=== PATIENT | male | born 1930 | race Caucasian/White ===

== ENCOUNTER → 2017-01-20 | Outpatient (CLI) | payer BC ==
[~2017-01-20] MED LIST: ACET300T2 PO; ASPI81TA28 PO; EPP3/2 IM; LEVO25TA5 PO; MULTTAB58 PO; PRLSR20 PO; SIMV-151 PO; TPRSR/25 PO
[2017-01-20 09:22] LABS: HEMATOCRIT 37.6 % (42-52); MEAN CELL VOLUME 100.5 fL (80-100); MEAN CORPUSCULAR HEMOGLOBIN 32.6 pg (25-34); MEAN CORPUSCULAR HGB CONC 32.4 g/dl (32-36); MEAN PLATELET VOLUME 11.8 fL (7.4-10.4); PLATELET COUNT 113 K/uL (130-400); RED BLOOD COUNT 3.74 M/uL (4.7-6.1); WHITE BLOOD COUNT 7.24 K/uL (4.8-10.8)
[2017-01-20 09:31] LABS: BLOOD UREA NITROGEN 19 mg/dl (7-18); BUN/CREATININE RATIO 16.2 (10-20); CARBON DIOXIDE 29 mmol/L (21-32); CHLORIDE 108 mmol/L (98-107); GLUCOSE 84 mg/dl (70-99); MAGNESIUM 2.3 mg/dl (1.8-2.4); POTASSIUM 4.2 mmol/L (3.5-5.1); SODIUM 143 mmol/L (136-145)
[2017-01-20 09:34] LABS: CALCIUM 9.5 mg/dl (8.5-10.1)
== END ==
LOC: C.LABFOXMH 09:00
PROVIDERS: ATTEND Internal Medicine
DX: I10 Essential (primary) hypertension (principal)

== ENCOUNTER → 2017-01-26 | Outpatient (CLI) | payer BC | END | disposition home or self-care (01) | LOC: C.LABFOXMH 09:39 | PROVIDERS: ATTEND Internal Medicine | DX: D53.9 Nutritional anemia, unspecified (principal) ==

== ENCOUNTER → 2017-02-02 | Outpatient (CLI) | payer BC ==
--- NOTE | 2017-02-02 14:29 | DIAGNOSTIC IMAGING REPORT ---
CT OF THE HEAD WITHOUT CONTRAST CLINICAL HISTORY: MEMORY LOSS, GAIT DYSFUNCTION COMPARISON STUDY: Head CT June 08, 2013. CT DOSE: 1068.18 mGycm TECHNIQUE: Helical axial images of the head were obtained without IV contrast. Automated exposure control was utilized for the study. FINDINGS: No acute intracranial hemorrhage, midline shift or mass effect is present. Ventricular system is stable. Basilar cisterns are patent. There are no extra axial collections. Teran-white differentiation is preserved. Mild atrophy is noted. White matter hypodensities suggest mild small vessel disease. There are no findings to suggest acute dural sinus thrombosis or acute territorial infarct. There are no significant calvarial abnormalities. Visualized portions of the sinuses and mastoid air cells are clear. IMPRESSION: No acute intracranial findings. Electronically signed by: Alvin Barboza M.D. 02/02/2017 2:27 PM Dictated Date/Time: 02/02/2017 2:25 PM
== END | disposition home or self-care (01) ==
LOC: C.CTS 14:06
PROVIDERS: ATTEND Internal Medicine
DX: R41.3 Other amnesia (principal); R32 Unspecified urinary incontinence; R26.9 Unspecified abnormalities of gait and mobility

== ENCOUNTER → 2017-06-07 | Outpatient (CLI) | payer BC | END | disposition home or self-care (01) | LOC: C.LABFOXMH 09:16 | PROVIDERS: ATTEND Internal Medicine Hospice and Palliative Medicine | DX: E03.9 Hypothyroidism, unspecified (principal) ==

== ENCOUNTER → 2018-01-24 | Outpatient (CLI) | payer BC ==
[2018-01-24 09:32] LABS: ALBUMIN 3.8 gm/dl (3.4-5.0); ALT/SGPT 19 U/L (12-78); AST/SGOT 19 U/L (15-37); BLOOD UREA NITROGEN 23 mg/dl (7-18); CALCIUM 8.5 mg/dl (8.5-10.1); CARBON DIOXIDE 31 mmol/L (21-32); CHOLESTEROL 77 mg/dl (0-200); CREATININE 1.37 mg/dl (0.60-1.40); GLUCOSE 86 mg/dl (70-99); POTASSIUM 4.1 mmol/L (3.5-5.1); SODIUM 142 mmol/L (136-145)
[2018-01-24 09:35] LABS: ALKALINE PHOSPHATASE 44 U/L (45-117); LDL CHOLESTEROL CALCULATED 30 mg/dl; TOTAL PROTEIN 6.9 gm/dl (6.4-8.2)
== END | disposition home or self-care (01) ==
LOC: C.LABFOXMH 09:06
PROVIDERS: ATTEND Internal Medicine
DX: E78.00 Pure hypercholesterolemia, unspecified (principal)

== ENCOUNTER 2019-06-27 16:21 | Inpatient (IN) ==
--- NOTE | 2019-06-27 18:55 | Emergency Department Note ---
Entered by Antonietta Grimaldo acting as a scribe for Dave Reyes DO History of Present Illness General Chief complaint: Rash Stated complaint: RASH Time Seen by Provider: 06/27/19 17:18 Source: patient History of Present Illness Provider complaint: Rash Onset (ago): month(s) 1 Location: chest Radiation: back and extremity (Upper ) Maximum Pain Intensity: 0 Relieved By: + none Associated symptoms: + other (Fatigue); no cough, no diaphoresis, no fever/chills and no shortness of breath The patient is a 88 year old male who presents to the Emergency Room with complaints of a rash on his chest that began 1 month ago. The patient states the rash radiates from his chest to his arms and back. Additionally, the patient states the rash is not relieved by anything specific. The patient reports experiencing extreme fatigue. The patient denies experiencing any diaphoresis, cough, fever/chills, or shortness of breath. The patient mentioned that he has "issues with his blood." Home Medications Home Medications Medication Instructions Recorded Confirmed Type aspirin 81 mg tablet,delayed 81 mg PO DAILY tab 06/16/19 06/27/19 History release levothyroxine 25 mcg tablet 25 mcg PO DAILY tab 06/16/19 06/27/19 History metoprolol succinate ER 25 mg 25 mg PO DAILY tab 06/16/19 06/27/19 History tablet,extended release 24 hr omeprazole 20 mg capsule,delayed 20 mg PO DAILY #30 cap 06/16/19 06/27/19 History release simvastatin 20 mg tablet 20 mg PO DAILY tab 06/16/19 06/27/19 History donepezil 10 mg PO DAILY 06/27/19 06/27/19 History Allergies Allergy/AdvReac Type Severity Reaction Status Date / Time coconut Allergy Unknown Verified 06/27/19 15:52 nut - unspecified Allergy Unknown . Verified 06/27/19 15:52 Past Med/Surg History Medical History Chest pain (Acute) Family History Other Family history non-contributory Social History Feels Safe at Home: Yes Smoking Status: Never smoker Review of Systems See HPI for pertinent positives & negatives. and A total of 10 systems reviewed and were otherwise negative Physical Exam Vital Signs Vital Signs - 24 hr 06/27/19 16:23 06/27/19 18:35 Temperature 36.3 C L Temperature Source Oral Sepsis Recent Fever Within 48 Hours No Sepsis Action Taken by Nursing No Action Required Pulse Rate 80 Pulse Rate [Right Finger] 70 Pulse Rhythm Regular Pulse Strength Normal Respiratory Rate 20 18 Respiratory Effort / Characteristics Non-Labored Spontaneous Respiratory Depth Normal Respiratory Pattern Regular Blood Pressure 111/64 Blood Pressure [Right Arm] 115/58 L Blood Pressure Mean 79 Blood Pressure Mean [Right Arm] 77 Blood Pressure Position [Right Arm] Sitting Pulse Oximetry 91 99 Oxygen Delivery Method Room Air CONSTITUTIONAL/VITAL SIGNS: Reviewed / noted above. GENERAL: Non-toxic in appearance. INTEGUMENTARY: Warm, dry, and [place]. Multiple small peticule dots on chest and extremities HEAD: Normocephalic. EYES: without scleral icterus or trauma. ENT/OROPHARYNX: clear and moist. LYMPHADENOPATHY/NECK: Is supple without lymphadenopathy or meningismus. RESPIRATORY: Lungs clear and equal. CARDIOVASCULAR: Regular rate and rhythm. GI/ABDOMEN: Soft and nontender. No organomegaly or pulsatile mass. No rebound or guarding. Normal bowel sounds. EXTREMITIES: Warm and well perfused. BACK: No CVA tenderness. NEUROLOGICAL: Intact without focal deficits. PSYCHIATRIC: normal affect. MUSCULOSKELETAL: Normally developed with good muscle tone. Course 1721: Past medical records reviewed. The patient was evaluated in room B10. A complete history and physical exam was performed. 1749: I spoke with Dr. Armenta- Internal Medicine about the patient's case and he said he did a peripheral blood smear test that shows he might have acute leukemia. 1802: I spoke with Dr. Faye about the patient's case and she will accept the patient for further evaluation. Medical Decision Making Differential Diagnosis Differential diagnosis: Etiologies such as contact dermatitis, viral exanthem, urticaria, allergic reaction, Gilbert-Agustin syndrome, toxic epidermal necrolysis, erythema multiforme, cellulitis, scabies, HSV, varicella, zoster, eczema, staph scalded skin syndrome, fungal infection, as well as others were entertained. Medical Records Attestation: I reviewed the patient's medical records. Home Medications Current Medication List: was personally reviewed by me Laboratory Data Attestation: I reviewed the patient's lab results. The white blood cell count is 24,000. Hemoglobin is 7.6. Chemistry panel was unremarkable. BUN is 25 and creatinine is 1.74. Blood Pressure Blood Pressure Findings: Normal blood pressure Blood Pressure Disposition: further management by hospitalist ANNITA Riggins This is an 88-year-old male who presents to the ED with a chief complaint of elevated white blood cell count and anemia. He also reports a petechial-like rash on his thorax and extremities. The patient has been feeling tired in addition to the rash. Dr. Fung had blood work performed yesterday as well as today. His white blood cell count is elevated at 24,000. Hemoglobin yesterday was 8.1. It is 7.6 today. The patient's BUN and creatinine are slightly elevated. Urine did not show infection. He reportedly had a chest x-ray 2 days ago that was normal as well. I spoke with Dr. Fung about the patient. He was concerned about the patient having leukemia. He talked to the pathologist today and the pathologist told him he has a abnormal peripheral smear. This smear was not available on the electronic medical record yet. I type and screen the patient. I spoke with the hospitalist, who will see the patient for further inpatient evaluation and care. Impression & Plan Anemia, Fatigue, Leukocytosis, Leukemia Discharge Plan Visit Data Chief Complaint: Rash Stated Complaint: RASH ED Provider: Dave Reyes Discharge Problem: Anemia, Fatigue, Leukocytosis, Leukemia Forms Stand Alone Forms: My [facility] [employer] Prescriptions Prescriptions: No Action simvastatin 20 mg tablet 20 mg PO DAILY RF: 0 omeprazole 20 mg capsule,delayed release(DR/EC) 20 mg PO DAILY Qty: 30 RF: 0 aspirin 81 mg tablet,delayed release (DR/EC) 81 mg PO DAILY RF: 0 levothyroxine 25 mcg tablet 25 mcg PO DAILY RF: 0 metoprolol succinate 25 mg tablet extended release 24 hr 25 mg PO DAILY RF: 0 donepezil 10 mg tablet 10 mg PO DAILY RF: 0 Discharge Problem: Anemia Qualifiers: Anemia type: unspecified type Qualified Code(s): D64.9 - Anemia, unspecified Fatigue Qualifiers: Fatigue type: unspecified Qualified Code(s): R53.83 - Other fatigue Leukocytosis Qualifiers: Leukocytosis type: unspecified Qualified Code(s): D72.829 - Elevated white blood cell count, unspecified Leukemia Qualifiers: Leukemia type: unspecified Leukemia Active/Remission status: without remission Qualified Code(s): C95.90 - Leukemia, unspecified not having achieved remission The scribe's documentation has been prepared under my direction and personally reviewed by me in its entirety. I confirm that the note above accurately reflects all work, treatment, procedures, and medical decision making performed by me.
--- NOTE | 2019-06-27 19:00 | History & Physical Report ---
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 Nash hematology oncology and he will see patient tomorrow. Referral placed Admit to PCU on telemetry for observation Vital signs every 4 hours Monitor CBCs CBC CMP in a.m. BNP pending peripheral blood smear sent to pathology Uric acid pending, PT PTT INR pending Dr. Nash would also need Darragh chromosome but that can be ordered only during the morning shift in the lab and with pathologist. Please order Darragh chromosome in the morning. DVT prophylaxis for now continue SCDs and teds, Dr. Nash will evaluate patient in the morning and decide whether or not he will start Lovenox for prophylaxis 1 unit of blood is about to be given. Patient signed a consent. Patient is full code per his request Present on Admission?: Yes (2) Anemia: As above Present on Admission?: Yes (3) Chest pain: Troponin every 6 hours x2 with EKG to rule out possible acute coronary syndrome Present on Admission?: Yes (4) Coronary artery disease: Stable continue metoprolol 25 mg p.o. daily Present on Admission?: Yes (5) Hypothyroidism: Continue continue levothyroxine 25 MCG's daily (6) Hyperlipidemia: Continue simvastatin 20 mg p.o. daily Present on Admission?: Yes (7) GERD (gastroesophageal reflux disease): Omeprazole on hold since patient has acutely elevated creatinine. We will hold nephrotoxic agents and give famotidine instead. Present on Admission?: Yes (8) Acute kidney insufficiency: Creatinine acutely elevated to 1.74 GFR 34. Avoid nephrotoxic agents. Monitor creatinine and GFR daily. Present on Admission?: Yes History of Present Illness Chief Complaint: severe anemia, chest pain, generalized weakness Primary Care Provider: [facility] Patient is a 88 years old male with past medical history of hypertension, coronary artery disease, vascular dementia, hypothyroidism, GERD, hyperlipidemia, who was brought by his daughter to the emergency room after she was alerted by patient PCP at [facility] that patient has acute leukemia which just resulted in the pathology lab and he needs to be evaluated in the ER. Patient is difficult to cooperate and would like to leave. Patient also has a rash all over his body but nobody knows how long this has been ongoing. Rash looks like pinpoint scabs and they are located everywhere under his close. Patient daughter Shruthi would like to be called and be as a personal contact for the patient who is highly uncooperative. Her number is [phone] which is herself. Patient is in denial and he said that there is nothing wrong with him and he wants to go home. He admits on occasion having the chest pain. Patient does not have chest pain at the present time. Patient denies fever chills, headache abdominal pain shortness of breath frequency urgency, hematuria dysuria, hemoptysis melena or hematochezia. Labs are reviewed: WBC 24.61, hemoglobin 7.6, hematocrit 22.8, platelets 60. PT 11.7, INR 1.2, APTT 24.7, sodium 141, potassium 4.2, chloride 107, creatinine 1.74 which is increased since October 26, 2018 1 was 1.13 October 2018 when was 1.18. Differential includes RBCs of 2.08, neutrophils 9.2, absolute neutrophils 9.2, which is elevated monocytes 8.12, also elevated eosinophils 0.86 elevated and blasts 2.14. Urine negative some trace protein and epithelial cells. 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 Allergies Allergy/AdvReac Type Severity Reaction Status Date / Time coconut Allergy Unknown Verified 06/27/19 15:52 nut - unspecified Allergy Unknown . Verified 06/27/19 15:52 Home Medications Home Medications Medication Instructions Recorded Confirmed Type aspirin 81 mg tablet,delayed 81 mg PO DAILY tab 06/16/19 06/27/19 History release levothyroxine 25 mcg tablet 25 mcg PO DAILY tab 06/16/19 06/27/19 History metoprolol succinate ER 25 mg 25 mg PO DAILY tab 06/16/19 06/27/19 History tablet,extended release 24 hr omeprazole 20 mg capsule,delayed 20 mg PO DAILY #30 cap 06/16/19 06/27/19 History release simvastatin 20 mg tablet 20 mg PO DAILY tab 06/16/19 06/27/19 History donepezil 10 mg PO DAILY 06/27/19 06/27/19 History Past Med/Surg History Medical History Chest pain (Acute) Family History Other Family history non-contributory Social History Preferred Language: Lao Communication Ability: Effective 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 Beliefs That Will Affect Care: Jain Jain Beliefs: Mormonism Current Living Situation: Spouse and Personal Care Facility Current Living Situation Comment: [facility] Other Information That Helps Us Care for You: No Feels Safe at Home: Yes Safety Concerns: Feels Safe At This Time Smoking Status: Never smoker Do You Dip or Chew Tobacco: No ; Second Hand Exposure: No ; Tobacco Cessation Education Requested by Patient: No Hx Alcohol Use: Yes Alcohol type: wine Hx Substance Use: No Review of Systems Review of Systems: All systems reviewed & are unremarkable except as noted in HPI & below Physical Exam Constitutional: WD/WN, vitals as above well developed and + cachectic Eyes: PERRL, conjunctivae normal, anicteric sclerae ENMT: external ear and nose normal, oropharynx normal Neck: trachea midline, no thyromegaly Respiratory: normal respiratory effort, lungs clear to auscultation Cardiovascular: RRR, no murmur, no edema Gastrointestinal (Abdomen): normal bowel sounds, soft, nontender, no hepatosplenomegaly Musculoskeletal: no cyanosis or clubbing, extremities motor strength 5/5 Skin: + rash (Maculopapular rash in different stages of healing with some creatinine-like lesions located all over patient body except for his head.) and + excoriations Neurologic: patellar DTR's 2+ bilat, sensation intact Psychiatric: A+Ox3, euthymic affect Lymphatic: no cervical or axillary lymphadenopathy Results & Data Vital Signs (Past 12 Hours) Vital Signs Temp Pulse Pulse Resp BP BP Pulse Ox 06/27/19 18:35 70 18 115/58 L 99 06/27/19 16:23 36.3 C L 80 20 111/64 91 Code Status & VTE Plan Code Status Full code PG Care Time/CCT Total # of Minutes Spent Total Time Spent with Patient: Total time spent is greater than 50% in coordination of care (as documented) at patient's floor/unit and/or counseling patient: (1) Anemia Anemia type: unspecified type Qualified Code(s): D64.9 - Anemia, unspecified (2) Leukemia Leukemia Active/Remission status: without remission Leukemia type: unspecified Qualified Code(s): C95.90 - Leukemia, unspecified not having achieved remission
[2019-06-27] MEDS ORDERED: ONDANSETRON INJ 2 MG/ML 2 ML VIAL IV PRN (20:57)
[2019-06-27] MEDS ORDERED: ZOLPIDEM TARTRATE 5 MG TAB PO PRN (20:57)
[2019-06-27] MEDS ORDERED: POLYETHYLENE (MIRALAX) 17 GM PACK PO PRN (20:57)
[2019-06-27] MEDS ORDERED: ACETAMINOPHEN 325 MG TAB PO PRN (20:57)
[2019-06-27] MEDS ORDERED: OXYCODONE/ACETAMINOPHEN 5mg/325mg TAB PO PRN (20:57)
[2019-06-27] MEDS ORDERED: SODIUM CHLORIDE 0.9% 250 ML IV PRN (20:57)
[2019-06-27] MEDS ORDERED: ZINC OXIDE 16% 45 APPLN, HYDROCORTISONE 1% 45 APPLN, ALUMINUM/MAGNESIUM SUSP 15 ML, BAR... TOP PRN (21:16)
[2019-06-27] MEDS ORDERED: hydrOXYzine HCl 10 MG TAB PO PRN (21:17)
[2019-06-27 21:35] LABS: Mean Corpuscular Hgb Conc 32.9 g/dL (32-36); Nucleated RBC # (auto) 0.03 K/uL (0-0); Nucleated RBC % (auto) 0.1 %
[2019-06-27 21:56] LABS: NT Pro B Type Natriuretic Pept 1577 pg/ml (0-1800); Troponin I < 0.015 ng/ml (0-0.045)
[2019-06-27 22:00] LABS: Platelet Count 67 K/uL (130-400)
[2019-06-27] MEDS ORDERED: SIMVASTATIN 20 MG TAB PO SCH (22:00)
[2019-06-27] MEDS: DONEPEZIL HCL 10 MG TAB PO SCH (22:12)
[2019-06-27] MEDS: ASPIRIN 81 MG ECTAB PO SCH (22:12)
[2019-06-27] MEDS: LEVOTHYROXINE SODIUM 25 MCG TABLET PO SCH (22:12)
[2019-06-27 22:16] LABS: Anisocytosis Present; Basophilic Stippling 1+; Hematocrit (blood only) 23.7 % (42-52); Hemoglobin 7.8 g/dL (14.0-18.0); Macrocytosis Present; Mean Corpuscular Hemoglobin 36.1 pg (25-34); Mean Corpuscular Volume 109.7 fL (80-100); Mean Platelet Volume 11.3 fL (7.4-10.4); RDW Standard Deviation 74.6 fL (36.4-46.3); Red Blood Count 2.16 M/uL (4.7-6.1); White Blood Count 28.93 K/uL (4.8-10.8)
[2019-06-27 22:17] LABS: ALC (manual) 5.03 K/uL (1.2-3.4); ANC (manual) 11.28 K/uL (1.4-6.5); Basophils # (manual) 0.26 K/uL (0-0.2); Basophils % (manual) 0.9 %; Blast # (manual) 1.76 K/uL (0-0); Blast Cells % (manual) 6.1 %; Eosinophils # (manual) 0.26 K/uL (0-0.5); Eosinophils % (manual) 0.9 %; Lymphocytes # (manual) 5.03 K/uL (1.2-3.4); Lymphocytes % (manual) 17.4 %; Monocytes # (manual) 9.32 K/uL (0.11-0.59); Monocytes % (manual) 32.2 %; Myelocytes # (manual) 0.75 K/uL (0-0); Myelocytes % (manual) 2.6 %; Neutrophils # (manual) 11.28 K/uL (1.4-6.5); Promyelocytes # (manual) 0.26 K/uL (0-0); Promyelocytes % (manual) 0.9 %
[2019-06-27 22:38] LABS: INR 1.2 (0.9-1.1); Partial Thromboplastin Ratio 0.9; Partial Thromboplastin Time 23.9 Seconds (21.0-31.0); Prothrombin Time 11.9 Seconds (9.0-12.0)
[2019-06-28 02:46] LABS: Mean Corpuscular Hgb Conc 33.6 g/dL (32-36)
[2019-06-28 03:09] LABS: Alanine Aminotransferase 17 U/L (12-78); Albumin Level 3.5 gm/dl (3.4-5.0); Aspartate Aminotransferase 15 U/L (15-37); BUN Creatinine Ratio 14.3 (10-20); Blood Urea Nitrogen 25 mg/dl (7-18); Calcium 8.3 mg/dl (8.5-10.1); Carbon Dioxide 28 mmol/L (21-32); Chloride 108 mmol/L (98-107); Creatinine Clr Calc Pharmacy 24.9 ml/min; Est GFR (African American) 39.4; Glucose 91 mg/dl (70-99); Potassium 4.4 mmol/L (3.5-5.1); Sodium 143 mmol/L (136-145)
[2019-06-28 03:14] LABS: Albumin Globulin Ratio 1.3 (0.9-2); Alkaline Phosphatase 33 U/L (45-117); Bilirubin,Total 0.4 mg/dl (0.2-1); Globulin 2.7 gm/dl (2.5-4.0); Total Protein 6.2 gm/dl (6.4-8.2); Troponin I < 0.015 ng/ml (0-0.045)
[2019-06-28 03:36] LABS: ALC (manual) 5.08 K/uL (1.2-3.4); ANC (manual) 10.59 K/uL (1.4-6.5); Blast # (manual) 0.43 K/uL (0-0); Blast Cells % (manual) 1.7 %; Eosinophils # (manual) 0.66 K/uL (0-0.5); Eosinophils % (manual) 2.6 %; Lymphocytes # (manual) 5.08 K/uL (1.2-3.4); Metamyelocytes # (manual) 0.23 K/uL (0-0); Metamyelocytes % (manual) 0.9 %; Monocytes # (manual) 8.18 K/uL (0.11-0.59); Monocytes % (manual) 32.2 %; Myelocytes # (manual) 0.23 K/uL (0-0); Myelocytes % (manual) 0.9 %; Neutrophils # (manual) 10.59 K/uL (1.4-6.5); Neutrophils % (manual) 41.7 %
[2019-06-28 03:45] LABS: Hemoglobin 8.4 g/dL (14.0-18.0); Mean Corpuscular Hemoglobin 35.4 pg (25-34); Mean Corpuscular Volume 105.5 fL (80-100); Mean Platelet Volume 10.6 fL (7.4-10.4); Platelet Count 54 K/uL (130-400); RDW Coefficient of Variation 19.5 % (11.5-14.5); RDW Standard Deviation 74.9 fL (36.4-46.3); Red Blood Count 2.37 M/uL (4.7-6.1); White Blood Count 25.39 K/uL (4.8-10.8)
[2019-06-28] MEDS: LEVOTHYROXINE SODIUM 25 MCG TABLET PO SCH (06:21)
[2019-06-28] MEDS: DONEPEZIL HCL 10 MG TAB PO SCH (08:09)
[2019-06-28] MEDS: ASPIRIN 81 MG ECTAB PO SCH (08:09)
--- NOTE | 2019-06-28 08:49 | Oncology Consultation ---
Date of Consultation June 28, 2019 Assessment & Plan (1) Leukemia: Mr. Sarmiento appears to have a leukemia. I spoke with hematopathology, who reviewed her peripheral smear. There were changes consistent with either myelodysplasia or myelophthisis. She has a broadly positive differential, with multiple marrow forms at variable points in maturation. This is often a sign of CML, though typically CML is not associated with dysplastic changes. I requested his blood be sent for BCR/ABL analysis to evaluate for CML. He will also need a bone marrow biopsy. However, he is not critically ill and his counts are not acutely worsening. We could arrange for a marrow biopsy as an outpatient. He does not appear to have a rapidly proliferating AML and would likely not tolerate induction therapy for that disease anyway. 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 I will arrange for him to come to my office for a bone marrow biopsy early next week. We will also arrange for weekly CBCs. Present on Admission?: Yes History of Present Illness Reason for Consultation: Leukemia Attending Physician: Tim Sánchez, DO History of Present Illness Mr. Sarmiento is an 88 year old man with a history of CAD, hypothyroidism, CKD, and GERD. He had some routine blood work done by his PCP on 06/26 that revealed a WBC count of 23K with hemoglobin 8.1 and platelets 60K. He was directed to the ER out of concern for acute leukemia. A repeat CBC here 06/27 revealed total WBCs 22K with 2K blasts, Hgb 7.6, and platelets 60K. A peripheral smear review revealed changes concerning for myelodysplasia or myelophthisis. We don't have many prior CBCs, but one from September revealed a hemoglobin of 10 with a macrocytosis and platelets of 100. He's had a mildly increased MCV since 2014, though his counts were largely normal at that time. He is hard of hearing and has some memory issues but denies feeling unwell in recent months. He has a rash on his chest and arms. He tells me it is not bothering him, but also was itching while we were talking. He couldn't tell me when it started. He denies any fevers, sweats, pain, anorexia, or fatigue. He does think he's lost some weight recently. Allergies Allergy/AdvReac Type Severity Reaction Status Date / Time coconut Allergy Unknown Verified 06/27/19 15:52 nut - unspecified Allergy Unknown . Verified 06/27/19 15:52 Home Medications Home Medications Medication Instructions Recorded Confirmed Type aspirin 81 mg tablet,delayed 81 mg PO DAILY tab 06/16/19 06/27/19 History release levothyroxine 25 mcg tablet 25 mcg PO DAILY tab 06/16/19 06/27/19 History metoprolol succinate ER 25 mg 25 mg PO DAILY tab 06/16/19 06/27/19 History tablet,extended release 24 hr omeprazole 20 mg capsule,delayed 20 mg PO DAILY #30 cap 06/16/19 06/27/19 History release simvastatin 20 mg tablet 20 mg PO DAILY tab 06/16/19 06/27/19 History donepezil 10 mg PO DAILY 06/27/19 06/27/19 History Patient History Medical History Chest pain (Acute) Family History Other Family history non-contributory Social History Preferred Language: [place] Zealander Communication Ability: Effective Pain Management Physician Required: No Beliefs That Will Affect Care: Congregational Congregational Beliefs: Nondenominational Current Living Situation: Spouse and Personal Care Facility Current Living Situation Comment: [facility] Other Information That Helps Us Care for You: No Feels Safe at Home: Yes Safety Concerns: Feels Safe At This Time Smoking Status: Never smoker Do You Dip or Chew Tobacco: No ; Second Hand Exposure: No ; Tobacco Cessation Education Requested by Patient: No Hx Alcohol Use: Yes Alcohol type: wine Hx Substance Use: No Review of Systems Review of Systems: His ROS was limited by his memory issues. Pertinent positives and negatives are mentioned in the HPI. Physical Exam Constitutional: + thin, + frail appearing and comfortable; no acute distress Eyes: + anicteric sclerae and EOM intact bilaterally ENMT: external ear and nose normal, oropharynx normal Respiratory: normal respiratory effort, lungs clear to auscultation Cardiovascular: RRR, no murmur, no edema Gastrointestinal (Abdomen): Inspection/Auscultation: normal bowel sounds; abdomen not distended Percussion/Palpation: abdomen soft; abdomen nontender Skin: He has a rash covering his chest and arms. It involves scattered pruritic, erythematous macules, some of which appear excoriated. I did not appreciate any domed or ruptured vesicles. Lymphatic: no cervical or axillary lymphadenopathy Results & Data Vital Signs (Past 12 Hours) Vital Signs Temp Pulse Pulse Resp BP BP Pulse Ox 06/28/19 07:13 36.4 C L 64 20 113/61 90 06/28/19 03:27 36.4 C L 83 19 100/62 99 06/28/19 00:45 36.5 C 65 16 98/56 L 96 06/28/19 00:00 92 H 06/27/19 23:48 36.4 C L 58 L 16 108/65 97 06/27/19 23:18 36.6 C 63 16 96/58 L 96 06/27/19 23:04 36.7 C 77 93/52 L 94 06/27/19 22:47 36.8 C 69 17 107/52 L 94 06/27/19 21:28 70 06/27/19 20:55 64 Laboratory Results Abnormal lab results 06/27/19 06/27/19 06/27/19 Range/Units 18:15 21:01 22:09 WBC 28.93 H (4.8-10.8) K/uL RBC 2.16 L (4.7-6.1) M/uL Hgb 7.8 L (14.0-18.0) g/dL Hct 23.7 L (42-52) % MCV 109.7 H (80-100) fL MCH 36.1 H (25-34) pg RDW Std Deviation 74.6 H (36.4-46.3) fL RDW Coeff of Franci 19.0 H (11.5-14.5) % Plt Count 67 L (130-400) K/uL MPV 11.3 H (7.4-10.4) fL Absolute Nucleated RBC 0.03 H (0-0) K/uL Neutrophils # (Manual) 11.28 H (1.4-6.5) K/uL Total Absolute Neuts 11.28 H (1.4-6.5) K/uL Lymphocytes # (Manual) 5.03 H (1.2-3.4) K/uL Total Abs Lymphocytes 5.03 H (1.2-3.4) K/uL Monocytes # (Manual) 9.32 H (0.11-0.59) K/uL Eosinophils # (Manual) (0-0.5) K/uL Basophils # (Manual) 0.26 H (0-0.2) K/uL Metamyelocytes # (Man) (0-0) K/uL Myelocytes # (Manual) 0.75 H (0-0) K/uL Promyelocytes # (Man) 0.26 H (0-0) K/uL Blast Cells # (Man) 1.76 H (0-0) K/uL INR 1.2 H (0.9-1.1) Chloride (98-107) mmol/L BUN (7-18) mg/dl Creatinine (0.6-1.4) mg/dl Uric Acid (2.6-7.2) mg/dl Calcium (8.5-10.1) mg/dl Alkaline Phosphatase (45-117) U/L Total Protein (6.4-8.2) gm/dl Crossmatch See Detail 06/27/19 06/28/19 06/28/19 Range/Units 22:09 02:37 02:37 WBC 25.39 H (4.8-10.8) K/uL RBC 2.37 L (4.7-6.1) M/uL Hgb 8.4 L (14.0-18.0) g/dL Hct 25.0 L (42-52) % MCV 105.5 H (80-100) fL MCH 35.4 H (25-34) pg RDW Std Deviation 74.9 H (36.4-46.3) fL RDW Coeff of Franci 19.5 H (11.5-14.5) % Plt Count 54 L (130-400) K/uL MPV 10.6 H (7.4-10.4) fL Absolute Nucleated RBC (0-0) K/uL Neutrophils # (Manual) 10.59 H (1.4-6.5) K/uL Total Absolute Neuts 10.59 H (1.4-6.5) K/uL Lymphocytes # (Manual) 5.08 H (1.2-3.4) K/uL Total Abs Lymphocytes 5.08 H (1.2-3.4) K/uL Monocytes # (Manual) 8.18 H (0.11-0.59) K/uL Eosinophils # (Manual) 0.66 H (0-0.5) K/uL Basophils # (Manual) (0-0.2) K/uL Metamyelocytes # (Man) 0.23 H (0-0) K/uL Myelocytes # (Manual) 0.23 H (0-0) K/uL Promyelocytes # (Man) (0-0) K/uL Blast Cells # (Man) 0.43 H (0-0) K/uL INR (0.9-1.1) Chloride 108 H (98-107) mmol/L BUN 25 H (7-18) mg/dl Creatinine 1.74 H (0.6-1.4) mg/dl Uric Acid 7.6 H (2.6-7.2) mg/dl Calcium 8.3 L (8.5-10.1) mg/dl Alkaline Phosphatase 33 L (45-117) U/L Total Protein 6.2 L (6.4-8.2) gm/dl Crossmatch (1) Leukemia Leukemia Active/Remission status: without remission Leukemia type: unspecified Qualified Code(s): C95.90 - Leukemia, unspecified not having ac hieved remission
[2019-06-28] MEDS ORDERED: INFLUENZA VIRUS QUAD VACCINE 0.5 ML SYR IM ONE (09:00)
[2019-06-28] MEDS ORDERED: PNEUMOCOCCAL POLYSACCHARIDES 25 MCG/0.5 ML VIAL/SYR IM ONE (09:00)
[2019-06-28] MEDS ORDERED: INFLUENZA ADMINISTRATION CHARGE ONE (09:00)
[2019-06-28] MEDS ORDERED: PNEUMOCOCCAL ADMINISTRATION CHARGE ONE (09:00)
[2019-06-28] MEDS ORDERED: FAMOTIDINE 20 MG TAB PO SCH (09:00)
[2019-06-28] MEDS ORDERED: METOPROLOL SUCC 25MG EXT REL TAB PO SCH (09:00)
--- NOTE | 2019-06-28 13:47 | Discharge Summary ---
Date of Service June 28, 2019 Admission HPI Per Admitting Provider Patient is a 88 years old male with past medical history of hypertension, coronary artery disease, vascular dementia, hypothyroidism, GERD, hyperlipidemia, who was brought by his daughter to the emergency room after she was alerted by patient PCP at [facility] that patient has acute leukemia which just resulted in the pathology lab and he needs to be evaluated in the ER. Patient is difficult to cooperate and would like to leave. Patient also has a rash all over his body but nobody knows how long this has been ongoing. Rash looks like pinpoint scabs and they are located everywhere under his close. Patient daughter Shruthi would like to be called and be as a personal contact for the patient who is highly uncooperative. Her number is [phone] which is herself. Patient is in denial and he said that there is nothing wrong with him and he wants to go home. He admits on occasion having the chest pain. Patient does not have chest pain at the present time. Patient denies fever chills, headache abdominal pain shortness of breath frequency urgency, hematuria dysuria, hemoptysis melena or hematochezia. Labs are reviewed: WBC 24.61, hemoglobin 7.6, hematocrit 22.8, platelets 60. PT 11.7, INR 1.2, APTT 24.7, sodium 141, potassium 4.2, chloride 107, creatinine 1.74 which is increased since October 26, 2018 1 was 1.13 October 2018 when was 1.18. Differential includes RBCs of 2.08, neutrophils 9.2, absolute neutrophils 9.2, which is elevated monocytes 8.12, also elevated eosinophils 0.86 elevated and blasts 2.14. Urine negative some trace protein and epithelial cells. 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 Discharge Exam Constitutional WD/WN, vitals as above Eyes PERRL, conjunctivae normal, anicteric sclerae ENMT external ear and nose normal, oropharynx normal Neck trachea midline, no thyromegaly Respiratory normal respiratory effort, lungs clear to auscultation Cardiovascular RRR, no murmur, no edema Gastrointestinal (Abdomen) normal bowel sounds, soft, nontender, no hepatosplenomegaly Musculoskeletal no cyanosis or clubbing, extremities motor strength 5/5 Skin no rashes, warm and dry Neurologic patellar DTR's 2+ bilat, sensation intact and PERRL, EOMI, accommodation nl, no face palsy, no dysarthria Psychiatric A+Ox3, euthymic affect Lymphatic no cervical or axillary lymphadenopathy Discharge Data Allergies Allergy/AdvReac Type Severity Reaction Status Date / Time coconut Allergy Unknown Verified 06/27/19 15:52 nut - unspecified Allergy Unknown . Verified 06/27/19 15:52 Consultations 06/27/19 18:01 ED Decision to Admit Stat 06/27/19 20:57 Consult Hematology Routine Hospital Course (1) MDS (myelodysplastic syndrome): presented with WBC 25k, anemia and thrombocytopenia evaluated by Dr. Nash who reviewed peripheral smear with hematopathology see his description below: There were changes consistent with either myelodysplasia or myelophthisis. He has a broadly positive differential, with multiple marrow forms at variable points in maturation. This is often a sign of CML, though typically CML is not associated with dysplastic changes. the plan at this point is to discharge to [facility] plan for bone marrow biopsy with Dr. Nash next week in his office testing for t22 BCR-ABL chromosome sent Dr. Nash will manage this as outpatient (2) Anemia: low at 7.5 on admission transfused one unit with Hb up to 8.4 blood pressure stable can repeat CBC next week with Dr. Nash, may need further transfusions depending on clinical course (3) Acute kidney injury: Cr up to 1.7, stable at 1.7 not currently on any nephrotoxins (no PAULETTE inh or ARBs) likely due to anemia and some low normal blood pressure stop Metoprolol to promote higher BP and better renal perfusion recommend staying well hydrated should get repeat BMP next week at [facility] (4) Chest pain: troponin negative, no chest pain this AM (5) Coronary artery disease: continue aspirin 81mg daily stop Metoprolol with HR in the 60's and BP low normal, even in the 90's systolic at times (6) Hypothyroidism: Continue continue levothyroxine 25 MCG's daily (7) Hyperlipidemia: Continue simvastatin 20 mg p.o. 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 Sheikh for results of [place] chromosome testing as well as bone marrow biopsy Activity: Resume your previous activity Non-emergency contact: Primary Care Provider Call non-emergency contact if: you have any medication questions, your symptoms worsen and you have a fever Follow-up/Referrals: Breanne Cortez [Primary Care Provider] - Diet: Regular Addtl Attending Provider Instructions: Medications: no new medications - METOPROLOL: stop this medication for the time being, can follow up with physician at [facility] your heart rate is in the 60-70's, blood pressure is low normal, could be lower due to anemia safer to keep blood pressure up instead of low Elevated white blood cells, anemia, low platelets evaluated by Dr. 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 Nash recommends outpatient follow up at the cancer center for bone marrow biopsy which will help determine the specific diagnosis this can be managed outpatient per Dr. Nash he will follow your blood counts in case you would need repeat transfusion in the future Dr. Nash's office number is [phone] if you do not hear from them by Tuesday he said that his office will arrange for follow up Pending Studies at Discharge: Yes Studies:: [place] Chromosome testing (t22 BCR-ABL) [facility] and [facility] Order Prescriptions: Continued simvastatin 20 mg tablet 20 mg PO DAILY RF: 0 omeprazole 20 mg capsule,delayed release(DR/EC) 20 mg PO DAILY Qty: 30 RF: 0 aspirin 81 mg tablet,delayed release (DR/EC) 81 mg PO DAILY RF: 0 levothyroxine 25 mcg tablet 25 mcg PO DAILY RF: 0 donepezil 10 mg tablet 10 mg PO DAILY RF: 0 Discontinued metoprolol succinate 25 mg tablet extended release 24 hr 25 mg PO DAILY RF: 0 Discharge Orders: Discharge Order (Routine); Ordered 06/28/19 Ordered By: Tim Sánchez Admission Data Admit Date/Time: 06/27/19 18:45 Attending Provider: Tim Sánchez Admit Provider: Stanislaw Faye Primary Care Provider: Breanne Cortez Other Providers: Stanislaw Faye ; Donato Nash Other Interventions: Discharge Summary Assessment (RN) Last Done: 06/28/19 13:00 DC Date/Time DO NOT enter until pt leaves facility: 06/28/19 13:33
== END 2019-06-28 13:33 | disposition home or self-care (01) | DRG 841 ==
LOC: ED 16:21 → SUATTDRO 18:45 → 2S 18:45